=== PATIENT | female | born 1990 | race Asian ===

== ENCOUNTER 2024-08-16 21:39 | Emergency (ER) | payer MEDICAID, SELFPAY ==
[2024-08-16 21:40] VITALS: BMI 36.6
[2024-08-16 21:52] VITALS: BP 164/92; PULSE 100; RESP 18; TEMP 37; O2SAT 100
--- NOTE | 2024-08-16 21:56 | PD.EDRME ---
Rapid Medical Screening Exam RME Arrival date/time: 08/16/24 21:39 Chief Complaint: Arrhythmia/Palpitations Time Seen by Provider: 08/16/24 21:55 Vital signs: Vital Signs Temperature 98.6 F 08/16/24 21:52 Pulse Rate 100 08/16/24 21:52 Respiratory Rate 18 08/16/24 21:52 Blood Pressure 164/92 H 08/16/24 21:52 Pulse Oximetry (%) 100 08/16/24 21:52 Oxygen Delivery Method Room Air 08/16/24 21:52 RME Narrative: Palpitations, mild chest heaviness x2 hours. Hx hypothyroidism, takes 150mcg daily.
--- NOTE | 2024-08-16 21:57 | EKG_ITS ---
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
--- NOTE | 2024-08-16 21:57 | XR_ITS ---
Examination: PA chest single view Admitting whenever AP chest single view Standing time: August 16, 2024 10:11 PM INDICATIONS: Chest pain beginning 2 hours ago FINDINGS: Normal heart size. Lungs are clear. The osseous structures are intact IMPRESSION: No active disease
--- NOTE | 2024-08-16 22:07 | PD.EDARRY ---
ED Arrhythmia Palp. RME/HPI General Chief Complaint: Arrhythmia/Palpitations Stated Complaint: PALPITATIONS Time Seen by Provider: 08/16/24 21:55 Source: patient, RN notes reviewed and old records reviewed Arrival date/time: 08/16/24 21:39 Mode of arrival: ambulatory Limitations: no limitations RME / HPI RME / HPI narrative: 34yof presents to ED for palpitations and mild chest heaviness for the past hours. Patient states she was diagnosed with hypothyroidism 2 months ago. PCP started patient on levothyroxine 25mcg then increased dose to 150mcg the following month. Initial TSH was 17. No shortness of breath, nausea/vomiting, dizziness or syncope reported. 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 Home Medications ?Medication ?Instructions ?Recorded ?Confirmed ferrous sulfate 325 mg (65 mg 325 mg PO QDAY 09/22/20 10/16/20 iron) tablet [id number] 1 mg 1 tab PO QDAY 09/22/20 10/16/20 tablet Allergies Allergy/AdvReac Type Severity Reaction Status Date / Time casirivimab (From REGEN-COV Allergy Severe Redness of Verified 08/16/24 21:44 (EUA)) Skin imdevimab (From REGEN-COV Allergy Severe Redness of Verified 08/16/24 21:44 (EUA)) Skin amoxicillin AdvReac Intermediate below Verified 08/16/24 21:44 Review of Systems Review of Systems Systems Reviewed: All systems reviewed, normal except as documented Constitutional Constitutional: Denies chills, Denies fever(s) and Denies headache(s) ENT Ears, Nose, Mouth, and Throat: Denies headache(s) and Denies vertigo Cardiovascular Cardiovascular: Reports chest pain (Mild heaviness), Denies dyspnea, Denies leg edema, Denies lightheadedness, Reports palpitations and Denies syncope Respiratory Respiratory: Denies dyspnea Gastrointestinal Gastrointestinal: Denies nausea and Denies vomiting Neurologic Neurologic: Denies confusion, Denies headache(s), Denies syncope and Denies vertigo Psychiatric Psychiatric: Denies anxiety, Denies confusion and Denies irritability Endocrine Endocrine: Reports palpitations Past Medical History Past Medical History GASTROINTESTINAL: Positive Obesity ENDOCRINE: Positive Hypothyroidism Surgical History SURGICAL: Negative Section Social History SMOKING STATUS: Never smoker ED Exam General Limitations: Present no limitations General appearance: Present alert, in no apparent distress and obese Head Head exam: Present atraumatic and normocephalic Eye Eye exam: Present normal appearance, PERRL and EOMI ENT ENT exam: Present normal exam and mucous membranes moist Neck Neck exam: Present normal inspection and full ROM Chest Chest inspection: Present normal inspection and symmetric chest wall rise Respiratory Respiratory exam: Present normal lung sounds bilaterally; Absent respiratory distress Cardiovascular Cardiovascular exam: Present normal rhythm and tachycardia Extremities Exam Extremities exam: Present normal inspection and full ROM; Absent pedal edema Neurological Exam Neurological exam: Present alert and oriented X3 Psychiatric Psychiatric exam: Present normal affect and normal mood Skin Skin exam: Present warm, dry, intact and normal color Course Quality Measures none Orders Category Date Time Status EKG (ED ONLY) *Do not use* NOW Care 08/16/24 21:58 Completed CXR [XR chest 1V] Stat Exams 08/16/24 21:57 Ordered EKG (ED Only) Stat Exams 08/16/24 21:57 Draft BNP [B-Type Natriuretic Peptide] Stat Lab 08/16/24 21:57 Ordered CBC Stat Lab 08/16/24 21:57 Ordered CMP [Comprehensive Metabolic Panel] Stat Lab 08/16/24 21:57 Ordered Free T4 (Free Thyroxine) Stat Lab 08/16/24 21:57 Ordered HCG,Qualitative Serum Stat Lab 08/16/24 21:57 Ordered TSH [Thyroid Stimulating Hormone] Stat Lab 08/16/24 21:57 Ordered Troponin I Stat Lab 08/16/24 21:57 Ordered Vital Signs Vital signs: Vital Signs Temperature 98.6 F 08/16/24 21:52 Pulse Rate 100 08/16/24 21:52 Respiratory Rate 18 08/16/24 21:52 Blood Pressure 164/92 H 08/16/24 21:52 Pulse Oximetry (%) 100 08/16/24 21:52 Oxygen Delivery Method Room Air 08/16/24 21:52 Procedures -ED EKG Interpretation #1: Date of EK08/16/24 Rate: 116 Interpretation: Interpreted by me EKG Impression: No acute ST-T changes, No ectopy, No ischemic changes, Sinus tachycardia, Normal QRS, Normal intervals and Normal axis Arrhythmia/Palpitations MDM Narrative MDM Narrative:: 34yof presents to ED for palpitations and mild chest heaviness for the past hours. Patient states she was diagnosed with hypothyroidism 2 months ago. PCP started patient on levothyroxine 25mcg then increased dose to 150mcg the following month. Initial TSH was 17. No shortness of breath, nausea/vomiting, dizziness or syncope reported. 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 TSH was 0.05, patient now hyperthyroid due to overmedication. At time of reassessment, patient states palpitations have subsided and she is feeling better. Recommended close follow-up with PCP for medication management. Encouraged referral from PCP for endocrinology. In the meantime, recommended taking half dose (75mcg) of levothyroxine. Patient comfortable with plan of care. Stable for discharge, RTED precautions given. Patient data External records reviewed:: [facility] previous records (10/16/2020 hospital admission for labor and delivery) Clinical information provided by:: patient Social determinants that could affect healthcare access:: none Patient has the following chronic illnesses:: Hypothyroid How is presenting disease/condition affected by chronic disease/condition?: caused by Evaluation data The following diagnostics were reviewed and interpreted by me:: lab results, radiology exam(s) and EKG tracing(s) Lab and/or radiology exams considered but not ordered:: None Interpretation Summary: CXR: no acute process per my read Hgb 11.7 TSH 0.05 Free T4 2.31 Negative trop Medications / Prescriptions Medications or Prescriptions considered but not ordered:: No antibiotics recommended at this time Medication administrations:: None Consultations Consultation(s) initiated? (list below): No Diagnosis Differential diagnosis arrhythmia/palpitations: palpitations, anxiety, sinus tachycardia and artial flutter Most likely diagnosis given after review of the tests above:: Palpitations, hyperthyroid 2/2 overmedication Admission Indicated Admission indicated?: not indicated Admission Request Was there a request for admission?: No Disposition Plan Disposition Plan: Discharge Discharge Attestation Discharge Attestation: The patient and all family members were given an opportunity to ask questions and understood the discharge instructions. Discharge instructions specifically effects, indications for sooner follow up or return to the emergency department, and the expected course of current diagnosis. Patient condition: Stable Discharge Plan Plan Patient Disposition: HOME (Self Care) Patient condition on transfer: Stable Prescriptions/Referrals Prescriptions/Med Rec: No Action ferrous sulfate 325 mg (65 mg iron) Tablet 325 mg PO QDAY [id number]-FA 1 mg Tablet 1 tab PO QDAY Referrals: No Primary/Family,Physician [Primary Care Provider] - In 1 week Problem List Clinical Impression: Low TSH level, Heart palpitations Patient/Caregiver Discharge Instructions Education Materials: ED Hyperthyroidism Additional Instructions: Please follow-up closely with your PCP or gravel inspector for adjustment of your levothyroxine. Print Language: Bengali Stand Alone Forms: Mel Award Info., Work/School Release, Patient Portal Info Letter PA/LEATHER WORKER Supervising Physician PA/LEATHER WORKER Supervising Physician: Erick
[2024-08-16 22:54] LABS: Basophils % (Auto) 0 % (0-2.5); Eosinophils # (Auto) 0.3 Thou/mm3 (0.0-0.5); Eosinophils % (Auto) 5 % (0-10); Hemoglobin 11.7 g/dL (12.0-16.0); Immature Granulocytes % (Auto) 0 % (0-0); Immature Granulocytes Auto 0.01 Thou/mm3 (0.00-0.00); Lymphocytes # (Auto) 2.6 Thou/mm3 (1.0-4.8); Lymphocytes % (Auto) 38 % (10-50); Mean Corpuscular HGB Conc 33.4 g/dl (31.0-37.0); Mean Corpuscular Hemoglobin 28.5 pg (25.0-35.0); Mean Corpuscular Volume 85 fL (80-100); Monocytes # (Auto) 0.5 Thou/mm3 (0.0-0.8); Monocytes % (Auto) 8 % (0-12); Neutrophils # (Auto) 3.4 Thou/mm3 (1.8-7.7); Neutrophils % (Auto) 49 % (37-80); Nucleated Red Blood Cell % 0 /100 WBC (0); Platelet Count 225 Thou/mm3 (140-440); RDW Standard Deviation 38.9 fL (36.4-46.3); Red Blood Count 4.11 Miln/mm3 (4.00-5.20); White Blood Count 6.9 Thou/mm3 (3.6-11.0)
[2024-08-16 23:12] LABS: B-Type Natriuretic Peptide < 20 pg/mL (0-100)
[2024-08-16 23:15] LABS: Alanine Aminotransferase 29 U/L (10-49); Albumin, Serum 4.7 gm/dL (3.5-5.0); Albumin/Globulin Ratio 1.7 (1.2-2.2); Alkaline Phosphatase 61 U/L (46-116); Anion Gap 6 (7-16); Aspartate Amino Transferase 20 U/L (0-34); BUN/Creatinine Ratio 18 Ratio (12-20); Bilirubin,Total 0.4 mg/dL (0.3-1.2); Blood Urea Nitrogen 11 mg/dL (9-23); Calcium 9.8 mg/dL (8.3-10.6); Calcium (Corrected) 9.8 mg/dL (8.5-10.1); Chloride 106 mMol/L (98-107); Creatinine (Component) 0.6 mg/dL (0.6-1.3); Estimated Creatinine Clearance 151.7 mL/min (>60); Free T4 (Free Thyroxine) 2.31 ng/dL (0.89-1.76); Globulin 2.8 gm/dL (2.3-3.5); Glucose 105 mg/dL (74-106); Osmolality,Calculated 275 (275-295); Potassium 3.7 mMol/L (3.4-5.1); Sodium 138 mMol/L (136-145); Thyroid Stimulating Hormone 0.05 uIU/mL (0.55-4.78); Total Protein 7.5 gm/dL (5.7-8.2); Troponin I < 0.002 ng/mL (0.0-0.045); eGFR > 60 See Note
[2024-08-16 23:23] LABS: HCG,Qualitative Serum Negative
[2024-08-17 00:27] VITALS: BP 135/85; PULSE 91; RESP 18; TEMP 37; O2SAT 97
== END 2024-08-17 04:58 | disposition home or self-care (01) ==
PROVIDERS: Physician Assistant; Emergency Provider Emergency Medicine
DX: R00.2 Palpitations (principal); E03.9 Hypothyroidism, unspecified
CPT/HCPCS: 36415; 71045; 80053; 83880; 84439; 84443; 84484; 84703; 85025; 93005; 99283